=== PATIENT | female | born 2005 | race Two or more races ===

== ENCOUNTER 2023-10-05 22:27 | Emergency (ER) | payer BC ==
[2023-10-05 22:40] VITALS: BP 107/67; PULSE 118; RESP 16; BMI 23.1
[2023-10-06] MEDS ORDERED: ACETAMINOPHEN INJECTION 100 ML IVPB ONE (00:06)
[2023-10-06 00:38] LABS: BASO % 0.2 % (0-2.0); HEMATOCRIT 37.2 % (32.4-45.2); HEMOGLOBIN 12.4 GM/dL (10.7-15.3); LYMPH % 3.4 % (8-40); MCH 28.1 pg (25.7-33.7); MCHC 33.3 g/dl (32.0-36.0); MEAN CELL VOLUME 84.6 fl (80-96); MEAN PLT VOLUME 6.9 fl (7.5-11.1); NEUT % 89.4 % (42.8-82.8); PLATELET COUNT 268 10^3/uL (134-434); RDW 13.9 % (11.6-15.6)
[2023-10-06] MEDS: ACETAMINOPHEN 1000 MG/100 ML BAG IVPB ONE (00:40)
[2023-10-06] MEDS: SODIUM CHLORIDE 0.9% 500 ML INFUS.BAG IV ONE (00:40)
[2023-10-06 00:57] LABS: POTASSIUM 3.8 mmol/L (3.5-5.1)
[2023-10-06 00:59] LABS: CALCIUM 9.1 mg/dL (8.5-10.1)
[2023-10-06 01:00] LABS: ALBUMIN 4.1 g/dl (3.4-5.0); BLOOD UREA NITROGEN 7.5 mg/dL (7-18)
[2023-10-06 01:03] LABS: CREATININE 0.8 mg/dL (0.55-1.3)
[2023-10-06 01:05] VITALS: TEMP 100
[2023-10-06 01:05] LABS: BILIRUBIN,TOTAL 0.7 mg/dL (0.2-1)
[2023-10-06] MEDS ORDERED: AZITHROMYCIN 500 MG TABLET ONE (01:28)
[2023-10-06] MEDS ORDERED: KETOROLAC TROMETHAMINE 15 MG/ML VIAL ONE (01:29)
[2023-10-06] MEDS: AZITHROMYCIN 250 MG TABLET PO ONE (01:36)
[2023-10-06] MEDS: KETOROLAC TROMETHAMINE 15 MG/ML VIAL IVPUSH ONE (01:36)
== END 2023-10-06 01:55 | disposition home or self-care (01) ==
LOC: JER 22:27 → JERFT 22:27 → JER 10-06 01:55
PROC: 3E033NZ Introduction of Analgesics, Hypnotics, Sedatives into Peripheral Vein, Percutaneous Approach (ICD-10-PCS; principal; 2023-10-05)
PROC: 3E0333Z Introduction of Anti-inflammatory into Peripheral Vein, Percutaneous Approach (ICD-10-PCS; 2023-10-05)
DX: R50.9 Fever, unspecified (principal); R05.1 Acute cough; M79.10 Myalgia, unspecified site; Z20.822 Contact with and (suspected) exposure to COVID-19
CPT/HCPCS: 0241U-QW; 36415; 71046-TC-FY; 80053; 84703; 85025; 99284-25; J0131